=== PATIENT | female | born 1950 | race Two or more races ===

== ENCOUNTER 2021-08-29 19:36 | Emergency (ER) | payer MEDICARE, MEDICAID ==
[~2021-08-29] VITALS: Ht 142.2 cm; Wt 69.9 kg
[2021-08-29 22:41] VITALS: BP 145/78
[2021-08-30] MEDS ORDERED: HYDR-4902 PO (02:20)
[2021-08-30] MEDS ORDERED: HYDROcodone-ACET 5/325MG TAB PO ONE (02:30)
== END 2021-08-30 02:52 | disposition home or self-care (01) ==
LOC: ER 19:36
DX: S82.64XA Nondisplaced fracture of lateral malleolus of right fibula, initial encounter for closed fracture (principal); I10 Essential (primary) hypertension; Z79.899 Other long term (current) drug therapy; Z88.6 Allergy status to analgesic agent; W18.39XA Other fall on same level, initial encounter; Y93.89 Activity, other specified; Y92.89 Other specified places as the place of occurrence of the external cause; Y99.8 Other external cause status
CPT/HCPCS: 29515; 73600